=== PATIENT | male | born 1995 | race Caucasian/White ===

== ENCOUNTER 2017-02-21 09:41 | Emergency (ER) | payer OTHER ==
[~2017-02-21] VITALS: Ht 170.2 cm; Wt 74.8 kg
[2017-02-21 10:00] VITALS: BP 106/59
[2017-02-21] MEDS ORDERED: FLONASE ALLERG9.9 ML NS (10:32)
[2017-02-21] MEDS ORDERED: VENTOLIN HFA18 GM INH (10:32)
--- NOTE | 2017-02-21 10:40 | Emergency Room Report ---
History of Present Illness General Chief Complaint: Flu Like Symptoms Source: Patient Present Illness HPI 21YOM with asthma walk-in with 2-3 days sore throat, dry cough, sinus congestion From [facility] program for drug abuse Non smoker +sick contacts with similar symptoms Allergies: Coded Allergies: No Known Allergies (Unverified , 02/21/17) Patient History Past Medical History: asthma Past Surgical History: none Pertinent Family History: none Social History: Reports: smoking, Denies: alcohol use, drug use Immunizations: UTD Reviewed Nursing Documentation: PMH: Agreed, PSxH: Agreed Nursing Documentation-PMH Past Medical History: No History, Except For Hx Cardiac Problems: Yes - HEART MURMUR Review of Systems All Other Systems: negative except mentioned in HPI Physical Exam Vital Signs Date Time Temp Pulse Resp B/P (MAP) Pulse Ox O2 Delivery O2 Flow Rate FiO2 02/21/17 09:52 98.1 71 20 106/59 99 Room Air Sp02 EP Interpretation: reviewed, normal General Appearance: normal inspection, well appearing, no apparent distress, alert, GCS 15, non-toxic Head: normocephalic, atraumatic Eyes: bilateral eye PERRL, bilateral eye EOMI ENT: normal ENT inspection, hearing grossly normal, normal pharynx, no angioedema, normal voice, TMs + canals normal, uvula midline, moist mucus membranes Neck: normal inspection, full range of motion, supple, no bony tend Respiratory: normal inspection, lungs clear, normal breath sounds, no respiratory distress, no retraction, no accessory muscle use, no wheezing, speaking full sentences Cardiovascular #1: regular rate, rhythm, no edema Gastrointestinal: normal inspection, normal bowel sounds, non tender, soft, no guarding, no hernia Genitourinary: no CVA tenderness Musculoskeletal: normal inspection, back normal, normal range of motion, Emma' s Sign negative Neurologic: normal inspection, alert, oriented x3, responsive, technical architect III-XII nml as tested, motor strength/tone normal, speech normal Psychiatric: normal inspection, judgement/insight normal, mood/affect normal Skin: normal inspection, normal color, no rash Medical Decision Making Diagnostic Impression: Primary Impression: URI (upper respiratory infection) Qualified Codes: J06.9 - Acute upper respiratory infection, unspecified; B97.89 - Other viral agents as the cause of diseases classified elsewhere ER Course Likely viral URI VSS. Afebrile. Not septic appearing Not in asthma exacerbation No obvious source of bacterial infection Likely viral Rx flonase, ventolin, supportive care PMD followup DC home Last Vital Signs Date Time Temp Pulse Resp B/P (MAP) Pulse Ox O2 Delivery O2 Flow Rate FiO2 02/21/17 10:00 71 20 Room Air 02/21/17 10:00 98.1 106/59 99 Status: improved Disposition: HOME, SELF-CARE Condition: Improved Scripts Fluticasone Propionate (Flonase Allergy Relief) 9.9 Ml [place].susp 9.9 ML NS BID, #1 UNIT Prov: KAREN CHAN M.D. 02/21/17 Albuterol Sulfate (VENTOLIN HFA) 18 Gm Hfa.aer.ad 1 PUFF INH EVERY 6 HOURS for cough, SOB, #18 GM 0 Refills Prov: KAREN CHAN M.D. 02/21/17 Patient Instructions: Upper Respiratory Infection, Adult, [id number] KAREN CHAN M.D. Feb 21, 2017 10:40
[2017-02-21 11:12] VITALS: BP 106/59
== END 2017-02-21 10:40 | disposition home or self-care (01) ==
LOC: EMR 10:05
DX: J06.9 Acute upper respiratory infection, unspecified (principal); F17.200 Nicotine dependence, unspecified, uncomplicated
CPT/HCPCS: 99284